=== PATIENT | female | born 1960 | race Caucasian/White ===

== ENCOUNTER 2017-03-22 14:10 | Emergency (ER) | payer SELFPAY ==
[~2017-03-22] VITALS: Ht 157.5 cm; Wt 70.3 kg
[2017-03-22] MEDS ORDERED: LIDODERM 5% P1 PATCH TD (17:08)
[2017-03-22] MEDS ORDERED: NORCO 7.5/321 TABLET PO (17:08)
[2017-03-22] MEDS ORDERED: MOTRIN800 MG PO (17:08)
[2017-03-22] MEDS ORDERED: TESSALON PERLE100 MG PO (17:09)
[2017-03-22 17:30] VITALS: BP 110/66
== END 2017-03-22 17:34 | disposition home or self-care (01) ==
LOC: EME 14:10
DX: J44.9 Chronic obstructive pulmonary disease, unspecified (principal); S29.9XXA Unspecified injury of thorax, initial encounter; X58.XXXA Exposure to other specified factors, initial encounter; R05 Cough; F17.200 Nicotine dependence, unspecified, uncomplicated
CPT/HCPCS: 71100; 93005; 99281; 99285; J3010